=== PATIENT | female | born 1990 | race Hispanic/Latino ===

== ENCOUNTER 2017-07-23 23:40 | Emergency (ER) | payer MEDICAID ==
[2017-07-23 23:54] VITALS: BMI 47.8
[2017-07-23 23:55] VITALS: PULSE 74; RESP 18; TEMP 100.4; O2SAT 99
--- NOTE | 2017-07-23 23:57 | ED PDOC ---
Arrival/HPI - General Historian: Patient <Talib Ramirez - Last Filed: 07/24/17 00:36> <Gurvinder Benitez - Last Filed: 07/24/17 00:52> - General Time Seen by Provider: 07/23/17 23:51 - History of Present Illness Narrative History of Present Illness (Text): 07/23/17 23:52 27 y/o female, no significant pmh, nkda, c/o tongue swelling and pain s/p tongue piercing about 2 days ago. Aching pain, feels the tongue is welling, feels warm and feverish, no night sweat, no difficulty swallowing, no other medical or psychiatric complaints. (Talib Ramirez) Past Medical History - Provider Review Nursing Documentation Reviewed: Yes - Past History Past History: Non-Contributing - Infectious Disease Hx of Infectious Diseases: None - Tetanus Immunization Tetanus Immunization: Unknown - Past Medical History Past Medical History: No Previous - Cardiac Hx Cardiac Arrhythmia: No Hx Congestive Heart Failure: No Hx Hypertension: No Hx Mitral Valve Prolapse: No Hx Pacemaker: No Hx Peripheral Edema: No - Pulmonary Hx Asthma: No Hx Bronchitis: No Hx Chronic Obstructive Pulmonary Disease (COPD): No Hx Emphysema: No Hx Pneumonia: No Hx Sleep Apnea: No - Neurological Hx Alzheimer's Disease: No Hx Dementia: No Hx Migraine: No Hx Parkinson's Disease: No Hx Seizures: No Hx Transient Ischemic Attacks (TIA): No - HEENT Hx HEENT Disorder: No Hx Blind: No Hx Cataracts: No Hx Deafness: No Hx Difficulty Chewing: No Hx Epistaxis: No Hx Glaucoma: No Hx Macular Degeneration: No - Renal Hx Renal Disorder: No Hx Kidney Stones: No - Endocrine/Metabolic Hx Hyperthyroidism: No Hx Hypothyroidism: No - Hematological/Oncological Hx Anemia: No Hx Sickle Cell Disease: No - Integumentary Hx Dermatological Disorder: No Hx Basal Cell Carcinoma: No Hx Eczema: No Hx Melanoma: No Hx Psoriasis: No Hx Squamous Cell Carcinoma: No - Musculoskeletal/Rheumatological Hx Falls: No Other/Comment: NECK PAIN, BACK PAIN - Gastrointestinal Hx Crohn's Disease: No Hx Diverticulitis: No Hx Gall Bladder Disease: No Hx Gastrointestinal Ulcer: Yes Hx Pancreatitis: No - Genitourinary/Gynecological Hx Sexually Transmitted Diseases: No - Psychiatric Hx Psychophysiologic Disorder: No Hx Anxiety: Yes Hx Bipolar Disorder: No Hx Depression: Yes Hx Schizophrenia: No Hx Substance Use: No - Past Surgical History Past Surgical History: No Previous - Surgical History Hx Appendectomy: No Hx Cholecystectomy: No Hx Coronary Stent: No - Anesthesia Hx Anesthesia Reactions: No - Suicidal Assessment Feels Threatened In Home Enviroment: No <Talib Ramirez - Last Filed: 07/24/17 00:36> Family/Social History - Physician Review Nursing Documentation Reviewed: Yes Family/Social History: Unknown Family HX Smoking Status: Never Smoked Hx Alcohol Use: Yes Hx Substance Use: No Hx Substance Use Treatment: No <Talib Ramirez - Last Filed: 07/24/17 00:36> Allergies/Home Meds <Talib Ramirez - Last Filed: 07/24/17 00:36> <Gurvinder Benitez - Last Filed: 07/24/17 00:52> Allergies/Adverse Reactions: Allergies UNKNOWN ANTIDEPRESSANT Allergy (Uncoded 07/23/17 23:51) RASH Home Medications: Home Meds Medication Instructions Recorded Confirmed Alprazolam [Xanax] 0.25 mg PO BID 10/11/15 03/29/16 Cyclobenzaprine [Flexeril] 10 mg PO HS 10/11/15 03/29/16 Ziprasidone [Geodon Cap] 40 mg PO Q12H 10/11/15 03/29/16 traZODone [Desyrel] 50 mg PO HS 10/11/15 03/29/16 Review of Systems - Review of Systems Constitutional: Fevers. absent: Fatigue Eyes: absent: Vision Changes ENT: absent: Hearing Changes Respiratory: absent: SOB, Cough Skin: absent: Rash, Pruritis, Ulcer Psychiatric: absent: Anxiety, Depression <Talib Ramirez - Last Filed: 07/24/17 00:36> Physical Exam - Systems Exam Head: Present: Atraumatic, Normocephalic Pupils: Present: PERRL Extroacular Muscles: Present: EOMI Conjunctiva: Present: Normal Mouth: Present: Moist Mucous Membranes, Normal Lips, Normal Teeth. No: Normal Tounge (visile tongue swelling and tongue piercing noted) Neck: Present: Normal Range of Motion, Trachea Midline. No: MIDLINE TENDERNESS , Paraspinal Tenderness, Lymphadenopathy Respiratory/Chest: Present: Clear to Auscultation, Good Air Exchange. No: Respiratory Distress, Accessory Muscle Use, Wheezes, Decreased Breath Sounds, Rales, Retracting, Rhonchi Cardiovascular: Present: Regular Rate and Rhythm, Normal S1, S2. No: Murmurs Abdomen: Present: Normal Bowel Sounds. No: Tenderness, Distention, Peritoneal Signs Back: Present: Normal Inspection Upper Extremity: Present: Normal Inspection. No: Cyanosis, Edema Lower Extremity: Present: Normal Inspection. No: Edema Neurological: Present: GCS=15, CN II-XII Intact, Speech Normal Skin: Present: Warm, Dry, Normal Color. No: Rashes Psychiatric: Present: Alert, Oriented x 3, Normal Insight, Normal Concentration <Talib Ramirez - Last Filed: 07/24/17 00:36> Medical Decision Making <Talib Ramirez - Last Filed: 07/24/17 00:36> <Gurvinder Benitez - Last Filed: 07/24/17 00:52> ED Course and Treatment: 07/23/17 23:59 -benadryl/solumedrol -unasyn -will remove the source of the problem 07/24/17 00:42 -piercing removed with unscrewing the top of the pin point region and remove it completely, no fluctuant abscess with no oozing/discharge. Piercing part given back to the patient. -Discharge home with clindamycin, motrin, rinse with salt water gargling/ hydrogen peroxide 2 times daily for 7 days, follow up with your own pmd and dentist within 2 days, return to the ER for any new or worsening signs or symptoms. (Talib Ramirez) - Medication Orders Current Medication Orders: Ampicillin Sodium/Sulbactam (Sodium 3 gm/ Sodium Chloride) 100 mls @ 100 mls/ hr IVPB STAT STA PRN Reason: Protocol Stop: 07/24/17 01:40 Discontinued Medications Acetaminophen (Tylenol 325mg Tab) 650 mg PO STAT STA Stop: 07/24/17 00:42 Diphenhydramine HCl (Benadryl) 50 mg IVP STAT STA Stop: 07/24/17 00:03 Last Admin: 07/24/17 00:16 Dose: 50 mg Ketorolac Tromethamine (Toradol) 30 mg IVP STAT STA Stop: 07/24/17 00:42 Methylprednisolone (Solu-Medrol) 125 mg IVP STAT STA Stop: 07/24/17 00:03 Last Admin: 07/24/17 00:16 Dose: 125 mg - PA / COMPRESSOR OPERATOR PORTABLE / Resident Statement ILIR has reviewed & agrees with the documentation as recorded. <Talib Ramirez - Last Filed: 07/24/17 00:36> - PA / COMPRESSOR OPERATOR PORTABLE / Resident Statement ILIR has reviewed & agrees with the documentation as recorded. ILIR has examined the patient and agrees with the treatment plan. <Gurvinder Benitez - Last Filed: 07/24/17 00:52> Disposition/Present on Arrival - Present on Arrival Any Indicators Present on Arrival: No History of DVT/PE: No History of Uncontrolled Diabetes: No Urinary Catheter: No History of Decub. Ulcer: No History Surgical Site Infection Following: None - Disposition Have Diagnosis and Disposition been Completed?: Yes Disposition Time: 00:44 Patient Plan: Discharge <Talib Ramirez - Last Filed: 07/24/17 00:36> <Gurvinder Benitez - Last Filed: 07/24/17 00:52> - Disposition Diagnosis: Tongue swelling, Piercing Disposition: HOME/ ROUTINE Condition: GOOD Additional Instructions: -Discharge home with augmentin, motrin, rinse with salt water gargling/hydrogen peroxide 2 times daily for 7 days, follow up with your own pmd and dentist within 2 days, return to the ER for any new or worsening signs or symptoms. Prescriptions: Amoxicillin/Clavulanate [Augmentin 875 MG-125 MG] 1 tab PO BID #20 tab Chlorhexidine 0.12% [Peridex] 15 ml PO BID #1 bottle Ibuprofen [Motrin Tab] 600 mg PO QID PRN #24 tab PRN Reason: Other Referrals: Farhat Peacock DMD [Non-Staff] - Follow up with primary Forms: WORK NOTE
[2017-07-24] MEDS ORDERED: DiphenhydrAMINE 50 mg/ml Inj IVP STA (00:02)
[2017-07-24 00:09] VITALS: BP 141/85
[2017-07-24] MEDS ORDERED: Ampicillin/Sulbactam 3 GM in Sodium Chloride 0.9% 100 ML IVPB STA (00:41)
== END 2017-07-24 02:10 | disposition home or self-care (01) ==
LOC: ED 23:40
DX: K14.9 Disease of tongue, unspecified (principal)
CPT/HCPCS: 96374; 96375; 99282; J0295; J1200; J1885; J2930

== ENCOUNTER 2017-10-16 08:05 | Emergency (ER) | payer MEDICAID ==
[2017-10-16 08:06] VITALS: BMI 47.8
[2017-10-16 08:18] VITALS: BP 131/81; PULSE 88; RESP 116; TEMP 98.8; O2SAT 97
[2017-10-16] MEDS ORDERED: Sodium Chloride 0.9% 1,000 ML IV STA (08:52)
--- NOTE | 2017-10-16 08:59 | ED PDOC ---
Arrival/HPI - General Historian: Patient - History of Present Illness Time/Duration: 24 hours Symptom Onset: Sudden Symptom Course: Intermittent Quality: Pressure, Cramping Severity Level: 10 Activities at Onset: Rest, Light Context: Home <Cecilio Prado - Last Filed: 10/16/17 11:13> <Nahum Sykes - Last Filed: 10/16/17 16:10> - General Chief Complaint: Abdominal Pain Time Seen by Provider: 10/16/17 08:10 - History of Present Illness Narrative History of Present Illness (Text): 10/16/17 09:03 Ms. Prabhakar is a 27 year old female with a past medical history significant for anxiety and depression who presents to the [facility] ED with a chief complaint of abdominal pain located in her LUQ and left flank since early yesterday morning. She reports that yesterday around 0200, she began to experience pain on her left side that she describes as "someone kicking me on the inside". She reports that she took an ibuprofen a few hours later with moderate relief. She also reports one episode of vomiting but she stated that she kept it in her mouth and swallowed it, as vomiting is "not lady like". She denies any association with PO intake, positioning or bowel movement but does endorse that the pain is worse with urination. She denies headache, dizziness, chest pain, SOB, cough, nausea, diarrhea, constipation, hematuria, urinary frequency, vaginal discharge , history of STI's or any numbness/tingling/weakness of any extremity. (Cecilio Prado) Past Medical History - Provider Review Nursing Documentation Reviewed: Yes - Travel History Have you recently traveled outside [place] w/in the past 3 mons?: No - Past History Past History: Non-Contributing - Infectious Disease Hx of Infectious Diseases: None - Tetanus Immunization Tetanus Immunization: Unknown - Reproductive Menopause: No - Past Medical History Past Medical History: No Previous - Cardiac Hx Cardiac Arrhythmia: No Hx Congestive Heart Failure: No Hx Hypertension: No Hx Mitral Valve Prolapse: No Hx Pacemaker: No Hx Peripheral Edema: No - Pulmonary Hx Asthma: No Hx Bronchitis: No Hx Chronic Obstructive Pulmonary Disease (COPD): No Hx Emphysema: No Hx Pneumonia: No Hx Sleep Apnea: No - Neurological Hx Alzheimer's Disease: No Hx Dementia: No Hx Migraine: No Hx Parkinson's Disease: No Hx Seizures: No Hx Transient Ischemic Attacks (TIA): No - HEENT Hx HEENT Disorder: No Hx Blind: No Hx Cataracts: No Hx Deafness: No Hx Difficulty Chewing: No Hx Epistaxis: No Hx Glaucoma: No Hx Macular Degeneration: No - Renal Hx Renal Disorder: No Hx Kidney Stones: No - Endocrine/Metabolic Hx Hyperthyroidism: No Hx Hypothyroidism: No - Hematological/Oncological Hx Anemia: No Hx Sickle Cell Disease: No - Integumentary Hx Dermatological Disorder: No Hx Basal Cell Carcinoma: No Hx Eczema: No Hx Melanoma: No Hx Psoriasis: No Hx Squamous Cell Carcinoma: No - Musculoskeletal/Rheumatological Hx Falls: No Other/Comment: NECK PAIN, BACK PAIN - Gastrointestinal Hx Crohn's Disease: No Hx Diverticulitis: No Hx Gall Bladder Disease: No Hx Gastrointestinal Ulcer: Yes Hx Pancreatitis: No - Genitourinary/Gynecological Hx Sexually Transmitted Diseases: No - Psychiatric Hx Psychophysiologic Disorder: No Hx Anxiety: Yes Hx Bipolar Disorder: No Hx Depression: Yes Hx Schizophrenia: No Hx Substance Use: No - Past Surgical History Past Surgical History: No Previous - Surgical History Hx Appendectomy: No Hx Cholecystectomy: No Hx Coronary Stent: No - Anesthesia Hx Anesthesia Reactions: No - Suicidal Assessment Feels Threatened In Home Enviroment: No <Cecilio Prado - Last Filed: 10/16/17 11:13> Family/Social History - Physician Review Nursing Documentation Reviewed: Yes Family/Social History: Unknown Family HX Smoking Status: Never Smoked Hx Alcohol Use: Yes Hx Substance Use: No Hx Substance Use Treatment: No <Cecilio Prado - Last Filed: 10/16/17 11:13> Allergies/Home Meds <Cecilio Prado - Last Filed: 10/16/17 11:13> <Nahum Sykes - Last Filed: 10/16/17 16:10> Allergies/Adverse Reactions: Allergies UNKNOWN ANTIDEPRESSANT Allergy (Uncoded 07/24/17 01:18) RASH Home Medications: Home Meds Medication Instructions Recorded Confirmed Alprazolam [Xanax] 0.25 mg PO BID 10/11/15 10/16/17 Ziprasidone [Geodon Cap] 40 mg PO Q12H 10/11/15 10/16/17 traZODone [Desyrel] 50 mg PO HS 10/11/15 10/16/17 Review of Systems - Physician Review All systems were reviewed & negative as marked: Yes - Review of Systems Constitutional: Normal. absent: Fevers, Night Sweats Eyes: Normal. absent: Vision Changes ENT: Normal. absent: Sore Throat Respiratory: Normal. absent: SOB, Cough, Sputum, Wheezing Cardiovascular: Normal. absent: Chest Pain, Edema Gastrointestinal: Abdominal Pain (Left upper quadrant/left flank), Vomiting ( One episode of vomiting ). absent: Normal, Stool Changes, Constipation, Diarrhea, Nausea, Appetite Changes, Hematochezia, Hematemesis Genitourinary Female: Dysuria. absent: Normal, Frequency, Hematuria, Urine Output Changes, Vaginal Bleeding, Vaginal Discharge Musculoskeletal: Normal. absent: Arthralgias, Back Pain, Neck Pain, Joint Swelling, Myalgias Skin: Normal. absent: Rash Neurological: Normal. absent: Headache Endocrine: Normal Hemo/Lymphatic: Normal Psychiatric: Normal <Cecilio Prado - Last Filed: 10/16/17 11:13> Physical Exam Vital Signs Reviewed: Yes Temperature: Afebrile Blood Pressure: Normal Pulse: Regular Respiratory Rate: Normal Appearance: Positive for: Well-Appearing, Non-Toxic, Comfortable Pain Distress: None Mental Status: Positive for: Alert and Oriented X 3 - Systems Exam Head: Present: Atraumatic, Normocephalic Pupils: Present: PERRL Extroacular Muscles: Present: EOMI Conjunctiva: Present: Normal Mouth: Present: Moist Mucous Membranes Neck: Present: Normal Range of Motion, Trachea Midline. No: Meningeal Signs, MIDLINE TENDERNESS, Paraspinal Tenderness, JVD Respiratory/Chest: Present: Clear to Auscultation, Good Air Exchange. No: Respiratory Distress, Accessory Muscle Use, Wheezes, Rales, Rhonchi, Tachypneic Cardiovascular: Present: Regular Rate and Rhythm, Normal S1, S2, Peripheal Pulses Present. No: Murmurs, Irregular Rhythm, Tachycardic, Bradycardic Abdomen: Present: Tenderness (TTP to LUQ and L flank), Normal Bowel Sounds. No : Distention, Peritoneal Signs, Rebound, Guarding, McBurney's Point Tender, Rovsing's Sign Present, Hernias, Feeding Tubes, Ostomy Tubes, Mass/Organomegaly , Scars Back: Present: Normal Inspection. No: CVA Tenderness, Midline Tenderness, Paraspinal Tenderness Upper Extremity: Present: Normal Inspection. No: Cyanosis, Edema Lower Extremity: Present: Normal Inspection. No: Edema Neurological: Present: GCS=15, CN II-XII Intact, Speech Normal Skin: Present: Warm, Dry, Normal Color. No: Rashes Lymphatic: No: Cervical Adenopathy Psychiatric: Present: Alert, Oriented x 3, Normal Insight, Normal Concentration <Cecilio Prado - Last Filed: 10/16/17 11:13> Vital Signs Temp Pulse Resp BP Pulse Ox 10/16/17 08:14 98.8 F 88 116 H 131/81 97 10/16/17 08:06 98.8 F 88 16 131/81 97 Medical Decision Making <Cecilio Prado - Last Filed: 10/16/17 11:13> <Nahum Sykes - Last Filed: 10/16/17 16:10> ED Course and Treatment: 10/16/17 09:11 Impression: 27 year old female with a past medical history significant for anxiety and depression who presents to the [facility] ED with a chief complaint of abdominal pain located in her LUQ and left flank since early yesterday morning Plan: -Toradol, Zofran, and 1L NS bolus -CBC, CMP, UA, Lipase, POC urine test -CT Abdomen/Pelvis w/ IV contrast -Reassess and disposition Prior Visits: 06/2017: Patient was seen and evaluated for tongue swelling 07/2016: Patient was seen and evaluated for sore throat (Cecilio Prado) A 27 year old female with left upper abdominal/left flank pain with dysuria. In agreement with resident note, which includes further HPI details. Patient was seen and evaluated with resident, came up with plan and treatment together. CT shows no stone. UA shows UTI. Discharged on Ciprofloxacin. (Nahum Sykes) - Lab Interpretations Lab Results: 10/16/17 08:56 10/16/17 08:56 Lab Results 10/16/17 09:10: Urine Color Yellow, Urine Appearance Cloudy, Urine pH 6.0, Ur Specific [place] 1.020, Urine Protein 30 H, Urine Glucose (UA) Negative, Urine Ketones Negative, Urine Blood Moderate H, Urine Nitrate Positive H, Urine Bilirubin Negative, Urine Urobilinogen 0.2, Ur Leukocyte Esterase Moderate H, Urine RBC 5 - 10, Urine WBC Tntc, Ur Epithelial Cells 0 - 2, Urine Bacteria Mod , Urine HCG, Qual Negative 10/16/17 08:56: Sodium 139, Potassium 4.0, Chloride 104, Carbon Dioxide 25, Anion Gap 14, BUN 14, Creatinine 0.6 L, Est GFR ( Amer) > 60, Est GFR ( Non-Af Amer) > 60, Random Glucose 174 H, Calcium 9.0, Total Bilirubin 0.6, AST 26, ALT 34, Alkaline Phosphatase 73, Total Protein 7.5, Albumin 4.0, Globulin 3.5, Albumin/Globulin Ratio 1.1, Lipase 98 10/16/17 08:56: WBC 7.4, RBC 3.97, Hgb 10.0 L, Hct 31.5 L, MCV 79.3 L, MCH 25.2 , MCHC 31.7, RDW 13.7, Plt Count 171, MPV 11.4 H, Gran % 62.6, Lymph % (Auto) 30.5, [place] % (Auto) 5.2, Eos % (Auto) 1.4 L, Baso % (Auto) 0.3, Gran # 4.62, Lymph # 2.3, Blount # 0.4, Eos # 0.1, Baso # 0.02 - RAD Interpretation Radiology Orders: 10/16/17 08:52 ABD & PELVIS IV CONTRAST ONLY [CT] Stat - Medication Orders Current Medication Orders: Discontinued Medications Sodium Chloride (Sodium Chloride 0.9%) 1,000 mls @ 999 mls/hr IV .Q1H1M STA Stop: 10/16/17 09:52 Last Admin: 10/16/17 09:00 Dose: 999 mls/hr eMAR Start Stop Document 10/16/17 09:00 [place] (Rec: 10/16/17 09:00 [place] [id number] Intravenous Solution Start Date 10/16/17 Start Time 09:00 Ketorolac Tromethamine (Toradol) 30 mg IVP STAT STA Stop: 10/16/17 08:54 Last Admin: 10/16/17 09:00 Dose: 30 mg MAR Pain Assessment Document 10/16/17 09:00 [place] (Rec: 10/16/17 09:01 [id number] Pain Reassessment Is this a pain reassessment? Yes Sleep Is patient sleeping during reassessment? No Presence of Pain Presence of Pain Yes Pain Scale Used Pain Scale Used Numeric Location Left, Right or Bilateral Left Upper or Lower Lower Pain Location Body Site Abdomen Description Description Intermittent Pain Behavior Guarding IVP Administration Document 10/16/17 09:00 LA (Rec: 10/16/17 09:01 [place] [facility] [id number] Charges for Administration # of IVP Administrations 1 Ondansetron HCl (Zofran Inj) 8 mg IVP STAT STA Stop: 10/16/17 08:53 Last Admin: 10/16/17 08:59 Dose: 8 mg IVP Administration Document 10/16/17 08:59 LA (Rec: 10/16/17 08:59 [place] [facility] [id number] Charges for Administration # of IVP Administrations 1 <Cecilio Prado - Last Filed: 10/16/17 11:13> - PA / MANAGER UNIVERSITY / Resident Statement MD/ has reviewed & agrees with the documentation as recorded. MD/ has examined the patient and agrees with the treatment plan. - Scribe Statement The provider has reviewed the documentation as recorded by the Scribe <Nauhm Sykes - Last Filed: 10/16/17 16:10> - Scribe Statement Miriam Velez Provider Scribe Attestation: All medical record entries made by the Scribe were at my direction and personally dictated by me. I have reviewed the chart and agree that the record accurately reflects my personal performance of the history, physical exam, medical decision making, and the department course for this patient. I have also personally directed, reviewed, and agree with the discharge instructions and disposition. (Nahum Sykes) Disposition/Present on Arrival - Present on Arrival Any Indicators Present on Arrival: No History of DVT/PE: No History of Uncontrolled Diabetes: No Urinary Catheter: No History of Decub. Ulcer: No History Surgical Site Infection Following: None - Disposition Have Diagnosis and Disposition been Completed?: Yes Disposition Time: 11:14 Patient Plan: Discharge <Cecilio Prado - Last Filed: 10/16/17 11:13> <Nahum Sykes - Last Filed: 10/16/17 16:10> - Disposition Diagnosis: Urinary tract infection Disposition: HOME/ ROUTINE Condition: STABLE Discharge Instructions (ExitCare): Urinary Tract Infection in Women (ED), Acute Pyelonephritis (ED) Additional Instructions: Mr. Prabhakar, thank you for letting us take care of you today. Your provider was Dr. Sykes. You were treated for UTI. The emergency medical care you received today was directed at your acute symptoms. If you were prescribed any medication , please fill it and take as directed. It may take several days for your symptoms to resolve. Return to the Emergency Department if your symptoms worsen , do not improve, or if you have any other problems. Please contact your doctor or call one of the physicians/clinics you have been referred to that are listed on the Patient Visit Information form that is included in your discharge packet. Bring any paperwork you were given at discharge with you along with any medications you are taking to your follow up visit. Our treatment cannot replace ongoing medical care by a primary care provider (PCP) outside of the emergency department. PLEASE FOLLOW UP WITH YOUR PMD WITHIN ONE WEEK TO DISCUSS THE CONDITIONS YOU WERE TREATED FOR IN THE ED Thank you for allowing the [facility] team to be part of your care today. If you had an X-Ray or CT scan: A Radiologist will review the ED reading if any change in treatment is needed we will contact you. Prescriptions: Ciprofloxacin [Cipro] 500 mg PO BID 7 Days #14 tab Forms: Online-OR (Swedish)
[2017-10-16 09:14] LABS: URINE BILIRUBIN NEGATIVE (NEGATIVE); URINE BLOOD MODERATE (NEGATIVE); URINE GLUCOSE (UA) NEGATIVE (NEGATIVE); URINE KETONE NEGATIVE (NEGATIVE); URINE LEUKOCYTE ESTERASE MODERATE Leu/uL (NEGATIVE); URINE PROTEIN 30 mg/dL (<30 mg/dL); URINE UROBILINOGEN 0.2 E.U./dL (<1 E.U./dL)
[2017-10-16 09:16] LABS: URINE APPEARANCE CLOUDY (CLEAR); URINE COLOR YELLOW (YELLOW)
[2017-10-16 09:19] LABS: URINE BACTERIA MOD (NEG); URINE EPITHELIAL CELLS 0 - 2 /hpf (0-5); URINE WBC TNTC /hpf (0-6)
[2017-10-16 09:27] LABS: BASO # 0.02 K/mm3 (0.0-2.0); BASO % 0.3 % (0.0-3.0); EOS # 0.1 (0.0-0.7); EOS % 1.4 % (1.5-5.0); GRAN # 4.62 (1.4-6.5); GRAN % 62.6 % (50.0-68.0); HEMATOCRIT 31.5 % (36.0-48.0); LYMPH # 2.3 (1.2-3.4); LYMPH % 30.5 % (22.0-35.0); MEAN CELL VOLUME 79.3 fl (80.0-105.0); MEAN CORPUSCULAR HEMOGLOBIN 25.2 pg (25.0-35.0); MEAN CORPUSCULAR HGB CONC 31.7 g/dl (31.0-37.0); MEAN PLATELET VOLUME 11.4 fl (7.0-11.0); MONO # 0.4 (0.1-0.6); MONO % 5.2 % (1.0-6.0); RED CELL DISTRIBUTION WIDTH 13.7 % (11.5-14.5); WHITE BLOOD COUNT 7.4 10^3/ul (4.5-11.0)
[2017-10-16 09:35] LABS: ALB/GLOB RATIO 1.1 (1.1-1.8); ALKALINE PHOSPHATASE 73 U/L (38-126); ALT/SGPT 34 U/L (7-56); AST/SGOT 26 U/L (14-36); BILIRUBIN,TOTAL 0.6 mg/dL (0.2-1.3); BLOOD UREA NITROGEN 14 mg/dL (7-21); CARBON DIOXIDE 25 mmol/L (21-33); CHLORIDE 104 mmol/L (98-107); GFR AFRICAN-AMERICAN > 60; GLUCOSE,RANDOM 174 mg/dL (70-110); LIPASE 98 U/L (23-300); SODIUM 139 mmol/L (132-148); TOTAL PROTEIN 7.5 g/dL (5.8-8.3)
--- NOTE | 2017-10-16 10:42 | CT ---
PROCEDURE: CT Abdomen and Pelvis with contrast HISTORY: abd pain, vomiting COMPARISON: Transvaginal pelvic ultrasound 10/27/2014, abdomen size 05/18/[address] with contrast 07/25/2013. TECHNIQUE: Contrast dose: Omnipaque 350, 150 cc. Radiation dose: Total exam DLP = 1421.43 mGy-cm. This CT exam was performed using one or more of the following dose reduction techniques: Automated exposure control, adjustment of the mA and/or kV according to patient size, and/or use of iterative reconstruction technique. FINDINGS: LOWER THORAX: Prominent cardiac silhouette is again appreciated. No pleural or pericardial effusion. A small hiatal hernia is identified. LIVER: Prominent diffuse fatty infiltration liver appreciate without focal hepatic mass evident. Liver appears upper limits normal size overall. GALLBLADDER AND BILE DUCTS: Unremarkable. PANCREAS: Unremarkable. No gross lesion or ductal dilatation. SPLEEN: Spleen remains enlarged without focal mass, measuring 17.5 cm. ADRENALS: Unremarkable. No mass. KIDNEYS AND URETERS: Unremarkable. No hydronephrosis. No solid mass. VASCULATURE: Unremarkable. No aortic aneurysm. BOWEL: There is no significant volume overall contrast administered to this patient. The stomach is collapsed. A [id number] amount of retained fecal material scattered throughout the large bowel with the small bowel unremarkable appearing grossly. No colonic diverticulosis. APPENDIX: Normal appendix. PERITONEUM: Unremarkable. No free fluid. No free air. LYMPH NODES: Unremarkable. No enlarged lymph nodes. BLADDER: Unremarkable. REPRODUCTIVE: Unremarkable. BONES: No acute fracture. OTHER FINDINGS: None. IMPRESSION: 1. Marked diffuse fatty infiltration of the liver is appreciate without focal mass identified. Liver appears upper limits normal size. 2. Persistent or recurrent splenomegaly now measuring 17.5 cm. No focal mass identified within the spleen. 3. No bowel, urinary tract obstruction. No perinephric reaction. No mesenteric edema, ascites or free intraperitoneal gas.
== END 2017-10-16 11:45 | disposition home or self-care (01) ==
LOC: ED 08:05
DX: N39.0 Urinary tract infection, site not specified (principal)
CPT/HCPCS: 74177; 80053; 81001; 83690; 84703; 85025; 87086; 87181; 96374; 96375; 99283; J1885; J2405; J7040; Q9967

== ENCOUNTER 2017-10-22 15:16 | Emergency (ER) | payer MEDICAID ==
[2017-10-22 15:17] VITALS: BMI 47.8
[2017-10-22 15:54] VITALS: BP 111/77; PULSE 99; RESP 18; TEMP 98.7; O2SAT 97
[2017-10-22] MEDS ORDERED: Sodium Chloride 0.9% 1,000 ML IV STA (17:06)
--- NOTE | 2017-10-22 17:28 | ED PDOC ---
Arrival/HPI - General Chief Complaint: GI Problem Time Seen by Provider: 10/22/17 15:20 Historian: Patient - History of Present Illness Narrative History of Present Illness (Text): 10/22/17 17:01 A 27 year old female, whose past medical history includes anxiety and depression , presents to the emergency department complaining of LUQ and episgastric pain for 1 week. Patient reports pain is "on and off" and describes it as aching. Also, patient mentions experiencing burning sensation of upper chest region associated with eating food. Patient notes experiencing 3 episodes of vomiting today, diarrhea last night, productive cough, and right back lumbar pain (worse with movement). Patient denies of any fever, chills, urinary symptoms, chest pain, shortness of breath, or any other complaints at this time. Patient visited the ER on 10/16 diagnose with UTI, and has 3 days left to complete Cipro prescription. However, patient has been unable to take GI medication because it has run out. PMD: Dr. Proctor Time/Duration: 1 week Past Medical History - Provider Review Nursing Documentation Reviewed: Yes - Past History Past History: Non-Contributing - Infectious Disease Hx of Infectious Diseases: None - Tetanus Immunization Tetanus Immunization: Unknown - Past Medical History Past Medical History: No Previous - Cardiac Hx Cardiac Disorders: No - Pulmonary Hx Respiratory Disorders: No - Neurological Hx Neurological Disorder: No - HEENT Hx HEENT Disorder: No - Renal Hx Renal Disorder: No - Endocrine/Metabolic Hx Endocrine Disorders: No - Hematological/Oncological Hx Blood Disorders: No - Integumentary Hx Dermatological Disorder: No - Musculoskeletal/Rheumatological Hx Musculoskeletal Disorders: Yes Hx Back Pain: Yes Other/Comment: NECK PAIN, BACK PAIN - Gastrointestinal Hx Gastrointestinal Ulcer: Yes - Genitourinary/Gynecological Hx Genitourinary Disorders: No - Psychiatric Hx Anxiety: Yes Hx Depression: Yes Hx Substance Use: No - Past Surgical History Past Surgical History: No Previous - Surgical History Hx Appendectomy: No Hx Cholecystectomy: No Hx Coronary Stent: No - Anesthesia Hx Anesthesia Reactions: No - Suicidal Assessment Feels Threatened In Home Enviroment: No Family/Social History - Physician Review Nursing Documentation Reviewed: Yes Family/Social History: No Known Family HX Smoking Status: Never Smoked Hx Alcohol Use: Yes Hx Substance Use: No Hx Substance Use Treatment: No Allergies/Home Meds Allergies/Adverse Reactions: Allergies UNKNOWN ANTIDEPRESSANT Allergy (Uncoded 10/22/17 15:49) RASH Home Medications: Home Meds Medication Instructions Recorded Confirmed Alprazolam [Xanax] 0.25 mg PO BID 10/11/15 10/22/17 Ziprasidone [Geodon Cap] 40 mg PO Q12H 10/11/15 10/22/17 traZODone [Desyrel] 50 mg PO HS 10/11/15 10/22/17 Review of Systems - Physician Review All systems were reviewed & negative as marked: Yes - Review of Systems Constitutional: absent: Fevers, Night Sweats Respiratory: Cough (productive). absent: SOB Cardiovascular: Chest Pain (burning sensation to upper chest region associated with eating food) Gastrointestinal: Abdominal Pain (aching pain in LUQ and epigastric region), Diarrhea (last night), Vomiting (3 episodes of vomiting today) Physical Exam Vital Signs Reviewed: Yes Vital Signs Temp Pulse Resp BP Pulse Ox 10/22/17 15:43 98.7 F 99 H 18 111/77 97 Temperature: Afebrile Blood Pressure: Normal Pulse: Regular Respiratory Rate: Normal Appearance: Positive for: Well-Appearing Pain Distress: None Mental Status: Positive for: Alert and Oriented X 3 - Systems Exam Head: Present: Atraumatic, Normocephalic Pupils: Present: PERRL Extroacular Muscles: Present: EOMI Conjunctiva: Present: Normal Mouth: Present: Moist Mucous Membranes Nose (Internal): Present: Normal Inspection Neck: Present: Normal Range of Motion. No: Meningeal Signs, MIDLINE TENDERNESS Respiratory/Chest: Present: Clear to Auscultation, Good Air Exchange. No: Respiratory Distress, Accessory Muscle Use Cardiovascular: Present: Regular Rate and Rhythm Abdomen: Present: Tenderness (epigastric), Normal Bowel Sounds, Guarding. No: Distention, Rebound Back: Present: Normal Inspection, Paraspinal Tenderness (right lower back tenderness). No: CVA Tenderness Upper Extremity: Present: Normal Inspection Lower Extremity: Present: Normal Inspection Neurological: Present: GCS=15, CN II-XII Intact, Speech Normal, Motor Func Grossly Intact, Normal Sensory Function Skin: Present: Warm Psychiatric: Present: Alert, Oriented x 3, Normal Insight, Normal Concentration Medical Decision Making ED Course and Treatment: 10/22/17 17:06 Impression: 27 year old female with epigastric and LUQ pain. Physical exam shows epigastric tenderness; and lower right back tenderness. Differential Diagnosis included but are not limited to: Gastritis vs. Pancreatitis vs. Viral Syndrome vs. Pneumonia Plan: -- Chest X-ray -- Labs -- Urinalysis -- Pepcid -- Zofran -- IV Fluids -- Reassess and disposition Prior Visits: Notes and results from previous visits were reviewed. Patient was last seen in the emergency department on 10/16/2017 for LUQ pain and left flank pain. Patient was discharged home. Progress Notes: 10/22/17 19:40 UA negative. Labs reviewed. CXR normal. Patient is feeling much better after IVF adn medications. She is tolerating PO fluids. She will follow up with her PMD in 1-2days. and advised to return to the ED if symptoms worsen or any other concern. - Lab Interpretations Lab Results: 10/22/17 17:13 10/22/17 17:13 Lab Results 10/22/17 17:17: Urine Color Yellow, Urine Appearance Clear, Urine pH 6.0, Ur Specific [place] >= 1.030, Urine Protein 30 H, Urine Glucose (UA) Negative, Urine Ketones Trace H, Urine Blood Small H, Urine Nitrate Negative, Urine Bilirubin Negative, Urine Urobilinogen 0.2, Ur Leukocyte Esterase Negative, Urine RBC 5 - 10, Urine WBC 0 - 2, Ur Epithelial Cells 10 - 12, Urine Bacteria Small 10/22/17 17:13: Sodium 140, Potassium 4.0, Chloride 101, Carbon Dioxide 26, Anion Gap 16, BUN 13, Creatinine 0.6 L, Est GFR ( Amer) > 60, Est GFR ( Non-Af Amer) > 60, Random Glucose 196 H, Calcium 9.8, Total Bilirubin 0.5, AST 34, ALT 21, Alkaline Phosphatase 81, Total Protein 8.4 H, Albumin 4.4, Globulin 4.0, Albumin/Globulin Ratio 1.1, Lipase 153 10/22/17 17:13: WBC 9.3 D, RBC 4.52, Hgb 11.4 L, Hct 35.2 L, MCV 77.9 L, MCH 25.2, MCHC 32.4, RDW 13.8, Plt Count 202, MPV 11.2 H, Gran % 63.4, Lymph % (Auto ) 28.7, Gem % (Auto) 6.0, Eos % (Auto) 1.8, Baso % (Auto) 0.1, Gran # 5.91, Lymph # 2.7, Gem # 0.6, Eos # 0.2, Baso # 0.01 I have reviewed the lab results: Yes - RAD Interpretation Radiology Orders: 10/22/17 17:06 CXR [CHEST PORTABLE] [RAD] Stat - Medication Orders Current Medication Orders: Discontinued Medications Famotidine (Pepcid) 20 mg IVP STAT STA Stop: 10/22/17 17:07 Last Admin: 10/22/17 17:24 Dose: 20 mg IVP Administration Document 10/22/17 17:24 SE (Rec: 10/22/17 17:24 [id number]) Charges for Administration # of IVP Administrations 1 Sodium Chloride (Sodium Chloride 0.9%) 1,000 mls @ 1,000 mls/hr IV .Q1H STA Stop: 10/22/17 18:05 Last Admin: 10/22/17 17:24 Dose: 1,000 mls/hr eMAR Start Stop Document 10/22/17 17:24 SE (Rec: 10/22/17 17:24 [id number]) Intravenous Solution Start Date 10/22/17 Start Time 17:24 Ondansetron HCl (Zofran Inj) 4 mg IVP STAT STA Stop: 10/22/17 17:07 Last Admin: 10/22/17 17:24 Dose: 4 mg IVP Administration Document 10/22/17 17:24 SE (Rec: 10/22/17 17:24 [id number]) Charges for Administration # of IVP Administrations 1 - Scribe Statement The provider has reviewed the documentation as recorded by the Gaby Prabhakar Provider Scribe Attestation: All medical record entries made by the Scribbessie were at my direction and personally dictated by me. I have reviewed the chart and agree that the record accurately reflects my personal performance of the history, physical exam, medical decision making, and the department course for this patient. I have also personally directed, reviewed, and agree with the discharge instructions and disposition. Disposition/Present on Arrival - Present on Arrival Any Indicators Present on Arrival: No History of DVT/PE: No History of Uncontrolled Diabetes: No Urinary Catheter: No History of Decub. Ulcer: No History Surgical Site Infection Following: None - Disposition Have Diagnosis and Disposition been Completed?: Yes Diagnosis: Abdominal pain, Viral syndrome Disposition: HOME/ ROUTINE Disposition Time: 19:40 Patient Plan: Discharge Condition: IMPROVED Discharge Instructions (ExitCare): Acute Abdominal Pain (ED), Viral Syndrome ( ED) Additional Instructions: Ms Prabhakar thank you for letting us take care of you today. Your provider was Dr Harris. You were treated for Abdominal Pain, Viral Syndrome. The emergency medical care you received today was directed at your acute symptoms. If you were prescribed any medication, please fill it and take as directed. It may take several days for your symptoms to resolve. Return to the Emergency Department if your symptoms worsen, do not improve, or if you have any other problems. Please contact your doctor or call one of the physicians/clinics you have been referred to that are listed on the Patient Visit Information form that is included in your discharge packet. Bring any paperwork you were given at discharge with you along with any medications you are taking to your follow up visit. Our treatment cannot replace ongoing medical care by a primary care provider (PCP) outside of the emergency department. Thank you for allowing the [email or web address] team to be part of your care today. If you had an X-Ray or CT scan: A Radiologist will review the ED reading if any change in treatment is needed we will contact you. If you had a blood, urine, or wound culture: It will take several days for the results, if any change in treatment is needed we will contact you. If you had an STI test: It will take 48 hours for the results. Please call after 1 week if you have not heard back. Prescriptions: guaiFENesin/Dextromethorphan [guaiFENesin-DM] 10 ml PO Q6 PRN #1 bottle PRN Reason: Cough Ondansetron ODT [Zofran ODT] 4 mg PO Q6 #14 odt Pantoprazole Sodium [Protonix] 20 mg PO DAILY #20 ect Ranitidine HCl [Zantac] 150 mg PO BID PRN #30 tablet PRN Reason: Pain, Mild (1-3) Referrals: Bernard Proctor DO [Primary Care Provider] - Follow up with primary Forms: [employer] (Korean), WORK NOTE
[2017-10-22 17:34] LABS: BASO # 0.01 K/mm3 (0.0-2.0); BASO % 0.1 % (0.0-3.0); EOS # 0.2 (0.0-0.7); EOS % 1.8 % (1.5-5.0); GRAN # 5.91 (1.4-6.5); GRAN % 63.4 % (50.0-68.0); HEMATOCRIT 35.2 % (36.0-48.0); LYMPH # 2.7 (1.2-3.4); LYMPH % 28.7 % (22.0-35.0); MEAN CELL VOLUME 77.9 fl (80.0-105.0); MEAN CORPUSCULAR HEMOGLOBIN 25.2 pg (25.0-35.0); MEAN CORPUSCULAR HGB CONC 32.4 g/dl (31.0-37.0); MEAN PLATELET VOLUME 11.2 fl (7.0-11.0); MONO # 0.6 (0.1-0.6); RED CELL DISTRIBUTION WIDTH 13.8 % (11.5-14.5); WHITE BLOOD COUNT 9.3 10^3/ul (4.5-11.0)
[2017-10-22 17:50] LABS: URINE BILIRUBIN NEGATIVE (NEGATIVE); URINE BLOOD SMALL (NEGATIVE); URINE GLUCOSE (UA) NEGATIVE (NEGATIVE); URINE KETONE TRACE mg/dL (NEGATIVE); URINE LEUKOCYTE ESTERASE NEGATIVE Leu/uL (NEGATIVE); URINE PROTEIN 30 mg/dL (<30 mg/dL); URINE UROBILINOGEN 0.2 E.U./dL (<1 E.U./dL)
[2017-10-22 18:02] LABS: URINE APPEARANCE CLEAR (CLEAR); URINE COLOR YELLOW (YELLOW)
[2017-10-22 18:10] LABS: URINE BACTERIA SMALL (NEG); URINE WBC 0 - 2 /hpf (0-6)
[2017-10-22 19:17] LABS: ALB/GLOB RATIO 1.1 (1.1-1.8); ALKALINE PHOSPHATASE 81 U/L (38-126); ALT/SGPT 21 U/L (7-56); AST/SGOT 34 U/L (14-36); BILIRUBIN,TOTAL 0.5 mg/dL (0.2-1.3); BLOOD UREA NITROGEN 13 mg/dL (7-21); CALCIUM 9.8 mg/dL (8.4-10.5); CARBON DIOXIDE 26 mmol/L (21-33); CHLORIDE 101 mmol/L (98-107); GFR AFRICAN-AMERICAN > 60; GLUCOSE,RANDOM 196 mg/dL (70-110); LIPASE 153 U/L (23-300); SODIUM 140 mmol/L (132-148); TOTAL PROTEIN 8.4 g/dL (5.8-8.3)
--- NOTE | 2017-10-23 08:57 | RAD ---
HISTORY: cough r/o pna COMPARISON: 01/07/2015 FINDINGS: LUNGS: No active pulmonary disease. PLEURA: No significant pleural effusion identified, no pneumothorax apparent. CARDIOVASCULAR: Normal. OSSEOUS STRUCTURES: No significant abnormalities. VISUALIZED UPPER ABDOMEN: Normal. OTHER FINDINGS: None. IMPRESSION: No active disease.
== END 2017-10-22 19:40 | disposition home or self-care (01) ==
LOC: ED 15:16
DX: B34.9 Viral infection, unspecified (principal); R10.12 Left upper quadrant pain; R10.13 Epigastric pain
CPT/HCPCS: 71010; 80053; 81001; 83690; 85025; 96374; 96375; 99284; J2405; J7040

== ENCOUNTER 2018-03-12 13:09 | Emergency (ER) | payer MEDICAID ==
[2018-03-12 13:09] VITALS: BMI 47.8
--- NOTE | 2018-03-12 13:33 | ED PDOC ---
Arrival/HPI - General Chief Complaint: Psychiatric Evaluation Time Seen by Provider: 03/12/18 13:19 Historian: Patient - History of Present Illness Narrative History of Present Illness (Text): 03/12/18 1330 pt p/w + worsening depression, + worsening suicidal thoughts (she may overdose on her medications), prompting patient to come to ED (pt is also incarcerated, accompanied by wood heel flap inserter while the patient is being evaluated in the ED); pt states + louder auditory hallucinations (hearing 3 men's voice telling her to end her life), ? visual/tactile hallucinations; pt denied homicidal ideations; pt states no fever/chills/sweats, no cp/sob/palpitations, pt with chronic abd pain , no n/v, no numbness/tingling, no urinary/bowel changes, no fall/trauma/sick contact, no traveler changer is here for further eval pt's without other complaints. pt ran out of her psych meds a few days ago PCP: Dr Ramirez? (JANY) Time/Duration: Prior to Arrival Symptom Onset: Gradual Symptom Course: Unchanged Context: Home Past Medical History - Provider Review Nursing Documentation Reviewed: Yes - Travel History Have you recently traveled outside [place] w/in the past 3 mons?: No - Past History Past History: Non-Contributing - Infectious Disease Hx of Infectious Diseases: None - Tetanus Immunization Tetanus Immunization: Unknown - Reproductive Menopause: No Currently : Unknown - Past Medical History Past Medical History: No Previous - Cardiac Hx Cardiac Disorders: No - Pulmonary Hx Respiratory Disorders: No - Neurological Hx Neurological Disorder: No - HEENT Hx HEENT Disorder: No - Renal Hx Renal Disorder: No - Endocrine/Metabolic Hx Endocrine Disorders: No - Hematological/Oncological Hx Blood Disorders: No - Integumentary Hx Dermatological Disorder: No - Musculoskeletal/Rheumatological Hx Musculoskeletal Disorders: No Hx Back Pain: No - Gastrointestinal Hx Gastrointestinal Ulcer: Yes - Genitourinary/Gynecological Hx Genitourinary Disorders: No - Psychiatric Hx Anxiety: Yes Hx Depression: Yes Hx Substance Use: No - Past Surgical History Past Surgical History: No Previous - Surgical History Hx Appendectomy: No Hx Cholecystectomy: No Hx Coronary Stent: No - Anesthesia Hx Anesthesia Reactions: No - Suicidal Assessment Feels Threatened In Home Enviroment: No Family/Social History - Physician Review Nursing Documentation Reviewed: Yes Family/Social History: No Known Family HX Smoking Status: Never Smoked Hx Alcohol Use: Yes Hx Substance Use: No Hx Substance Use Treatment: No Allergies/Home Meds Allergies/Adverse Reactions: Allergies UNKNOWN ANTIDEPRESSANT Allergy (Uncoded 10/22/17 15:49) RASH Home Medications: Home Meds Medication Instructions Recorded Confirmed Alprazolam [Xanax] 0.25 mg PO BID 10/11/15 10/22/17 Ziprasidone [Geodon Cap] 40 mg PO Q12H 10/11/15 10/22/17 traZODone [Desyrel] 50 mg PO HS 10/11/15 10/22/17 Review of Systems - Review of Systems Constitutional: Normal Eyes: Normal ENT: Normal Respiratory: Normal Cardiovascular: Normal Gastrointestinal: Abdominal Pain Genitourinary Female: Normal Musculoskeletal: Normal Skin: Normal Neurological: Normal Endocrine: Normal Hemo/Lymphatic: Normal Psychiatric: Depression, Suicidal Ideation Physical Exam Vital Signs Reviewed: Yes Vital Signs Temp Pulse Resp BP Pulse Ox 03/12/18 17:50 98.3 F 83 18 153/84 H 96 03/12/18 15:22 82 18 144/81 97 03/12/18 13:09 99.2 F 86 18 206/89 H 95 Temperature: Afebrile Blood Pressure: Hypertensive Pulse: Regular Respiratory Rate: Normal Appearance: Positive for: Well-Appearing, Non-Toxic, Uncomfortable Pain Distress: None Mental Status: Positive for: Alert and Oriented X 3 - Systems Exam Head: Present: Atraumatic, Normocephalic Pupils: Present: PERRL Extroacular Muscles: Present: EOMI Conjunctiva: Present: Normal Ears: Present: Normal Mouth: Present: Moist Mucous Membranes, Normal Teeth Pharnyx: Present: Normal Nose (External): Present: Atraumatic Nose (Internal): Present: Normal Inspection Neck: Present: Normal Range of Motion, Trachea Midline. No: Meningeal Signs, MIDLINE TENDERNESS Respiratory/Chest: Present: Clear to Auscultation, Good Air Exchange, Accessory Muscle Use. No: Respiratory Distress Cardiovascular: Present: Regular Rate and Rhythm, Normal S1, S2. No: Murmurs Abdomen: Present: Normal Bowel Sounds, Other (well nourished/obese female, no focal tenderness, no masses/rebound/guarding/rigidity, no walker's sign, no mcburney's point tenderness). No: Rebound, Guarding, McBurney's Point Tender Upper Extremity: Present: Normal Inspection, Normal ROM, NORMAL PULSES, Neurovascularly Intact, Capillary Refill < 2s Lower Extremity: Present: Normal Inspection, NORMAL PULSES, Normal ROM, Neurovascularly Intact, Capillary Refill < 2 s. No: Madeleine's Sign, Swelling Neurological: Present: GCS=15, CN II-XII Intact, Speech Normal, Other (no slurr speech, no facial asymmetries, NIH stroke scale ~ 0) Skin: Present: Warm, Normal Color, Other (cap refill < 1sec, no ulcerations, no petechiae) Psychiatric: Present: Alert, Oriented x 3, Normal Insight, Normal Concentration , Other (Flat affect) Medical Decision Making ED Course and Treatment: 03/12/18 1330 Impression: SI/depression, hallucination i have consider all the differential diagnosis regarding pt's chief medical complaints/clinical findings, including but are not limited to: SI/depression, hallucination A/P: SI/depression, hallucination - crisis eval - medical clearance - ua, xray, ekg, labs - supportive care - observe/reevaluation 03/12/18 15:34 pt remained comfortable, pt is not in any distress PT IS MEDICALLY CLEARED FOR PSYCH EVAL/stabilization 03/12/18 17:26 pt is cleared by PES/crisis counsleor, pt with major depressive disorder; pt will f/u with outpt clinic, pt will be discharged home pt is made aware of her medical results pt is encouraged outpt f/u pt will be discharged home pt will be discharged home Re-evaluation Time: 15:37 Reassessment Condition: Improving,but remains with symptoms - Lab Interpretations Lab Results: 03/12/18 13:55 03/12/18 13:55 Lab Results 03/12/18 15:37: Urine HCG, Qual Negative 03/12/18 14:17: Urine Opiates Screen Negative, Urine Methadone Screen Negative, Ur Barbiturates Screen Negative, Ur Phencyclidine Scrn Negative, Ur Amphetamines Screen Negative, U Benzodiazepines Scrn Negative, U Oth Cocaine Metabols Negative, U Cannabinoids Screen Negative 03/12/18 14:17: Urine Color Yellow, Urine Appearance Clear, Urine pH 6.0, Ur Specific [place] 1.025, Urine Protein Trace H, Urine Glucose (UA) Negative, Urine Ketones 15 H, Urine Blood Negative, Urine Nitrate Negative, Urine Bilirubin Negative, Urine Urobilinogen 0.2, Ur Leukocyte Esterase Negative, Urine RBC Negative, Urine WBC 0 - 2, Ur Epithelial Cells 4 - 5, Urine Bacteria Few 03/12/18 13:55: Alcohol, Quantitative < 10 03/12/18 13:55: Salicylates < 1 L, Acetaminophen < 10.0 L 03/12/18 13:55: Sodium 139, Potassium 4.0, Chloride 100, Carbon Dioxide 26, Anion Gap 16, BUN 10, Creatinine 0.6 L, Est GFR ( Amer) > 60, Est GFR ( Non-Af Amer) > 60, Random Glucose 231 H, Calcium 9.4, Total Bilirubin 0.2, AST 24, ALT 34, Alkaline Phosphatase 74, Total Protein 7.6, Albumin 4.3, Globulin 3.3, Albumin/Globulin Ratio 1.3 03/12/18 13:55: WBC 7.3 D, RBC 4.27, Hgb 9.3 L D, Hct 30.1 L, MCV 70.5 L D, MCH 21.8 L, MCHC 30.9 L, RDW 15.6 H, Plt Count 178, MPV 11.2 H, Gran % 67.7, Lymph % (Auto) 26.7, [place] % (Auto) 4.8, Eos % (Auto) 0.8 L, Baso % (Auto) 0.0, Gran # 4.94, Lymph # (Auto) 2.0, [place] # (Auto) 0.4, Eos # (Auto) 0.1, Baso # ( Auto) 0.00 I have reviewed the lab results: Yes Interpretation: Abnormal lab values (chronic hx of anemia (decr H/H); +elevated GLUC) - RAD Interpretation Narrative RAD Interpretations (Text): Report Date : 03/12/2018 16:31:54 Procedure: Chest xray Dictator : DR. Johansen, Shakila AVILA IMPRESSION: No active pulmonary disease. Radiology Orders: 03/12/18 13:30 CHEST PORTABLE [RAD] Stat Logistics Tech: Radiologist - EKG Interpretation EKG Interpretation (Text): 03/12/18 15:36 NSR at 90 bpm, LAD, no ectopy, inverted T In leads III, poor R-wave progression , non-specific st-t changes, ABNL EKG; unchanged compare with old ekg 12/2014 Interpreted by ED Physician: Yes Type: 12 lead EKG Comparison: Similar to previous EKG Disposition/Present on Arrival - Present on Arrival Any Indicators Present on Arrival: No History of DVT/PE: No History of Uncontrolled Diabetes: No Urinary Catheter: No History of Decub. Ulcer: No History Surgical Site Infection Following: None - Disposition Have Diagnosis and Disposition been Completed?: Yes Diagnosis: Major depression, General medical examination, Elevated blood pressure reading Disposition: HOME/ ROUTINE Disposition Time: 17:25 Patient Plan: Discharge Condition: STABLE Discharge Instructions (ExitCare): Depression, High Blood Pressure in Adults, Suicide Prevention, Hypertension (ED) Print Language: EAST TIMOR[place] Additional Instructions: PT IS MEDICALLY CLEARED TO BE EVALUTED AT OUTPATIENT PSYCH/therapy as well as under incarceration Make sure to see your doctor in 1-2 days DRINK PLENTY OF FLUIDS take your medications as prescribed DONT SMOKE/DRINK if you smoke or drink RETURN TO ED IF worse pain, cant breath, persistent vomiting, high fever >101- 102 for hours, altered behavior, severe depression, suicidal/homicidal thoughts , slurr speech, facial changes, focal weakness (arm/leg or both), unable to urinate, heavy/persistent bleeding, passing out, chest pain, or other medical emergencies Referrals: Mely Cassidy MD [Primary Care Provider] - Follow up with primary Forms: [employer] (Af[place])
[2018-03-12 13:41] VITALS: RESP 18
[2018-03-12 14:07] LABS: EOS # 0.1 (0.0-0.7); EOS % 0.8 % (1.5-5.0); GRAN # 4.94 (1.4-6.5); GRAN % 67.7 % (50.0-68.0); HEMOGLOBIN 9.3 g/dL (12.0-16.0); LYMPH % 26.7 % (22.0-35.0); MEAN CELL VOLUME 70.5 fl (80.0-105.0); MEAN CORPUSCULAR HEMOGLOBIN 21.8 pg (25.0-35.0); MEAN CORPUSCULAR HGB CONC 30.9 g/dl (31.0-37.0); MEAN PLATELET VOLUME 11.2 fl (7.0-11.0); MONO # 0.4 (0.1-0.6); MONO % 4.8 % (1.0-6.0); RBC 4.27 10^6/uL (3.5-6.1); RED CELL DISTRIBUTION WIDTH 15.6 % (11.5-14.5); WHITE BLOOD COUNT 7.3 10^3/ul (4.5-11.0)
[2018-03-12 14:19] LABS: ACETAMINOPHEN < 10.0 ug/ml (10.0-20.0); ALB/GLOB RATIO 1.3 (1.1-1.8); ALBUMIN 4.3 g/dL (3.0-4.8); ALT/SGPT 34 U/L (7-56); AST/SGOT 24 U/L (14-36); BLOOD UREA NITROGEN 10 mg/dL (7-21); CALCIUM 9.4 mg/dL (8.4-10.5); GFR AFRICAN-AMERICAN > 60; GFR NON-AFRICAN AMERICAN > 60; SALICYLATE < 1 mg/dL (2.0-20.0)
[2018-03-12 14:30] LABS: URINE BILIRUBIN NEGATIVE (NEGATIVE); URINE BLOOD NEGATIVE (NEGATIVE); URINE GLUCOSE (UA) NEGATIVE (NEGATIVE); URINE LEUKOCYTE ESTERASE NEGATIVE Leu/uL (NEGATIVE); URINE PROTEIN TRACE mg/dL (<30 mg/dL); URINE UROBILINOGEN 0.2 E.U./dL (<1 E.U./dL)
[2018-03-12 14:32] LABS: URINE APPEARANCE CLEAR (CLEAR); URINE COLOR YELLOW (YELLOW)
[2018-03-12 14:34] LABS: URINE BACTERIA FEW (NEG); URINE RBC NEGATIVE /hpf (0-2); URINE WBC 0 - 2 /hpf (0-6)
[2018-03-12 14:44] LABS: BARBITURATES, UR NEGATIVE (NEGATIVE); BENZODIAZEPINES, UR NEGATIVE (NEGATIVE); OPIATES, UR NEGATIVE (NEGATIVE); PHENCYCLIDINE, UR NEGATIVE (NEGATIVE)
--- NOTE | 2018-03-12 16:33 | RAD ---
HISTORY: medical screening COMPARISON: 10/22/2017. FINDINGS: LUNGS: The lungs are clear. PLEURA: No significant pleural effusion identified, no pneumothorax apparent. CARDIOVASCULAR: Normal. OSSEOUS STRUCTURES: No significant abnormalities. VISUALIZED UPPER ABDOMEN: Normal. OTHER FINDINGS: None. IMPRESSION: No active pulmonary disease.
[2018-03-12 17:51] VITALS: BP 153/84; PULSE 83; TEMP 98.3; O2SAT 96
--- NOTE | 2018-03-12 21:22 | CARD ---
APPROVED REPORT EKG Measurement Heart [id number] <Conclusion> Normal sinus rhythm Prolonged QT Abnormal ECG
== END 2018-03-12 17:53 | disposition home or self-care (01) ==
LOC: ED 13:09
DX: Z00.00 Encounter for general adult medical examination without abnormal findings (principal); F32.9 Major depressive disorder, single episode, unspecified; R03.0 Elevated blood-pressure reading, without diagnosis of hypertension

== ENCOUNTER 2018-06-12 14:06 | Emergency (ER) | payer MEDICAID ==
[2018-06-12 14:15] VITALS: BMI 51.2
[2018-06-12 14:23] VITALS: RESP 18; TEMP 98.3
[2018-06-12] MEDS ORDERED: Sodium Chloride 0.9% 1,000 ML IV STA (14:46)
[2018-06-12 15:31] LABS: BASO # 0.01 K/mm3 (0.0-2.0); BASO % 0.2 % (0.0-3.0); EOS # 0.1 (0.0-0.7); EOS % 1.7 % (1.5-5.0); GRAN # 3.47 (1.4-6.5); GRAN % 59.1 % (50.0-68.0); HEMOGLOBIN 9.2 g/dL (12.0-16.0); LYMPH % 34.4 % (22.0-35.0); MEAN CELL VOLUME 72.4 fl (80.0-105.0); MEAN CORPUSCULAR HEMOGLOBIN 23.1 pg (25.0-35.0); MEAN CORPUSCULAR HGB CONC 31.9 g/dl (31.0-37.0); MEAN PLATELET VOLUME 10.2 fl (7.0-11.0); MONO # 0.3 (0.1-0.6); MONO % 4.6 % (1.0-6.0); RBC 3.98 10^6/uL (3.5-6.1); RED CELL DISTRIBUTION WIDTH 15.3 % (11.5-14.5); WHITE BLOOD COUNT 5.9 10^3/ul (4.5-11.0)
[2018-06-12 15:46] LABS: INR 1.04 (0.93-1.08); PARTIAL THROMBOPLASTIN TIME 25.6 Seconds (25.1-36.5); PROTHROMBIN TIME 11.9 SECONDS (9.4-12.5)
[2018-06-12 15:49] LABS: ALB/GLOB RATIO 1.1 (1.1-1.8); ALBUMIN 3.9 g/dL (3.0-4.8); ALT/SGPT 28 U/L (7-56); AST/SGOT 20 U/L (14-36); BLOOD UREA NITROGEN 7 mg/dL (7-21); CALCIUM 8.9 mg/dL (8.4-10.5); GFR AFRICAN-AMERICAN > 60; GFR NON-AFRICAN AMERICAN > 60
--- NOTE | 2018-06-12 16:02 | ED PDOC ---
Arrival/HPI - General Chief Complaint: Female Genitourinary Time Seen by Provider: 06/12/18 14:23 Historian: Patient - History of Present Illness Narrative History of Present Illness (Text): 06/12/18 15:56 28-year-old female presents today with a 2 month history of vaginal bleeding and generalized weakness and fatigue. pt states she has been having periods where she will get her menstruation every 2 months. Patient states he will then stopped for a few days and then start again for another 2 months. Patient denies chest pain or shortness of breath. She denies fevers or chills. Patient states she is being followed by her ore puncher. Patient states she has not had an ultrasound. Patient denies urinary symptoms. Denies back pain. Denies nausea vomiting diarrhea or constipation. No other complaints Past Medical History - Provider Review Nursing Documentation Reviewed: Yes - Travel History Have you recently traveled outside [place] w/in the past 3 mons?: No - Past History Past History: Non-Contributing - Infectious Disease Hx of Infectious Diseases: None - Tetanus Immunization Tetanus Immunization: Unknown - Past Medical History Past Medical History: No Previous - Cardiac Hx Cardiac Disorders: No - Pulmonary Hx Respiratory Disorders: No - Neurological Hx Neurological Disorder: No - HEENT Hx HEENT Disorder: No - Renal Hx Renal Disorder: No - Endocrine/Metabolic Hx Endocrine Disorders: No - Hematological/Oncological Hx Blood Disorders: No - Integumentary Hx Dermatological Disorder: No - Musculoskeletal/Rheumatological Hx Musculoskeletal Disorders: No Hx Back Pain: No - Gastrointestinal Hx Gastrointestinal Ulcer: Yes - Genitourinary/Gynecological Hx Genitourinary Disorders: No - Psychiatric Hx Anxiety: Yes Hx Depression: Yes Hx Substance Use: No - Past Surgical History Past Surgical History: No Previous - Surgical History Hx Appendectomy: No Hx Cholecystectomy: No Hx Coronary Stent: No - Anesthesia Hx Anesthesia Reactions: No - Suicidal Assessment Feels Threatened In Home Enviroment: No Family/Social History - Physician Review Nursing Documentation Reviewed: Yes Family/Social History: Unknown Family HX Smoking Status: Never Smoked Hx Alcohol Use: Yes Hx Substance Use: No Hx Substance Use Treatment: No Allergies/Home Meds Allergies/Adverse Reactions: Allergies UNKNOWN ANTIDEPRESSANT Allergy (Uncoded 10/22/17 15:49) RASH Home Medications: Home Meds Medication Instructions Recorded Confirmed Alprazolam [Xanax] 0.25 mg PO BID 10/11/15 10/22/17 Ziprasidone [Geodon Cap] 40 mg PO Q12H 10/11/15 10/22/17 traZODone [Desyrel] 50 mg PO HS 10/11/15 10/22/17 Review of Systems - Review of Systems Constitutional: Fatigue. absent: Fevers ENT: absent: Sore Throat Respiratory: absent: SOB, Cough Cardiovascular: absent: Chest Pain, Palpitations Gastrointestinal: absent: Abdominal Pain, Nausea, Vomiting Genitourinary Female: Vaginal Bleeding. absent: Dysuria, Frequency, Hematuria Musculoskeletal: absent: Arthralgias, Back Pain, Neck Pain Skin: absent: Rash, Pruritis Neurological: absent: Headache, Dizziness Psychiatric: absent: Anxiety, Depression, Suicidal Ideation Physical Exam Vital Signs Reviewed: Yes Vital Signs Temp Pulse Resp BP Pulse Ox 06/12/18 16:40 74 18 128/74 97 06/12/18 14:22 98.3 F 78 18 131/77 97 Temperature: Afebrile Blood Pressure: Normal Pulse: Regular Respiratory Rate: Normal Appearance: Positive for: Well-Appearing, Non-Toxic, Comfortable Pain Distress: None Mental Status: Positive for: Alert and Oriented X 3 - Systems Exam Head: Present: Atraumatic Mouth: Present: Moist Mucous Membranes Neck: Present: Normal Range of Motion Respiratory/Chest: Present: Clear to Auscultation, Good Air Exchange. No: Respiratory Distress, Accessory Muscle Use Cardiovascular: Present: Regular Rate and Rhythm, Normal S1, S2. No: Murmurs Abdomen: No: Tenderness, Distention, Peritoneal Signs, Rebound, Guarding Genitourinary/Pelvic Exam: Present: Normal External Genitalia, Vaginal Bleeding (small amount of blood noted. ), Other (chaparoned by carmenza landin EMT). No: Vaginal Discharge, Vaginal Lesions Neurological: Present: GCS=15 Skin: Present: Warm, Dry, Normal Color. No: Rashes Psychiatric: Present: Alert, Oriented x 3 Medical Decision Making ED Course and Treatment: 06/12/18 16:04 Patient is nontoxic well appearing in no distress. vital signs are stable. CBC: hgb; 9.2 hgb was 9.3 02/2018 CMP: wnl EKG: Normal sinus rhythm at 78 bpm and complete right bundle branch block normal axis no ST elevations Urinalysis: + blood Ultrasound: FINDINGS: UTERUS: Measures 5.3 x 6.5 x 10.4 cm. Normal in size and appearance. No fibroid or other mass lesion seen. ENDOMETRIUM: Measures 22.4 mm in diameter. Endometrial hypertrophy without focal abnormality. This represents a new finding compared to the prior study. CERVIX: No cervical abnormality identified. RIGHT OVARY: Measures 2 x 4.6 x 3.5 cm. No solid mass. Normal flow. LEFT OVARY: Measures 2.4 x 2.4 x 2.9 cm. No solid mass. Normal flow. FREE FLUID: No significant free fluid noted. OTHER FINDINGS: None. IMPRESSION: Markedly thickened endometrial echo complex without focal abnormality. Otherwise unremarkable study. On pelvic exam patient was found to have minimal vaginal bleeding noted. pt reassessment; pt is non toxic well appearing; no distress. stable vitals. ambulating with steady gait. no distress. Discussed all the results the patient. advised f/u with the clerical adjudicator within the next 2 days. advised immediate return if symptoms worsen,persist or if new symptoms develop. Patient verbalizes understanding of discharge instructions and need for immediate followup. all aspects of this case were discussed the attending of record. Impression: Vaginal bleeding Tylenol every 4 hours as needed for pain Increase fluids Followup with the [facility] within the next 2 days Return immediately if symptoms worsen persist or if new symptoms develop: High fevers, heavy bleeding, severe abdominal pain, vomiting, diarrhea, dizziness or weakness or any other concerning symptoms develop. - Lab Interpretations Lab Results: 06/12/18 15:20 06/12/18 15:20 Lab Results 06/12/18 17:09: Urine Color Yellow, Urine Appearance Sl cloudy, Urine pH 6.0, Ur Specific [place] >= 1.030, Urine Protein 30 H, Urine Glucose (UA) Negative, Urine Ketones Negative, Urine Blood Large H, Urine Nitrate Negative, Urine Bilirubin Negative, Urine Urobilinogen 0.2, Ur Leukocyte Esterase Trace H, Urine RBC Tntc, Urine WBC 5 - 10, Ur Epithelial Cells 6 - 8, Urine Bacteria Mod 06/12/18 15:20: WBC 5.9, RBC 3.98, Hgb 9.2 L, Hct 28.8 L, MCV 72.4 L, MCH 23.1 L , MCHC 31.9, RDW 15.3 H, Plt Count 179, MPV 10.2, Gran % 59.1, Lymph % (Auto) 34.4, [place] % (Auto) 4.6, Eos % (Auto) 1.7, Baso % (Auto) 0.2, Gran # 3.47, Lymph # (Auto) 2.0, [place] # (Auto) 0.3, Eos # (Auto) 0.1, Baso # (Auto) 0.01 06/12/18 15:20: Sodium 140, Potassium 4.0, Chloride 102, Carbon Dioxide 25, Anion Gap 17, BUN 7, Creatinine 0.5 L, Est GFR ( Amer) > 60, Est GFR (Non -Af Amer) > 60, Random Glucose 138 H, Calcium 8.9, Total Bilirubin 0.3, AST 20, ALT 28, Alkaline Phosphatase 76, Total Protein 7.3, Albumin 3.9, Globulin 3.4, Albumin/Globulin Ratio 1.1 06/12/18 15:20: PT 11.9, INR 1.04, APTT 25.6 - RAD Interpretation Radiology Orders: 06/12/18 15:40 TRANSVAGINAL [US] Stat - Medication Orders Current Medication Orders: Discontinued Medications Sodium Chloride (Sodium Chloride 0.9%) 1,000 mls @ 999 mls/hr IV .Q1H1M STA Stop: 06/12/18 15:46 Last Admin: 06/12/18 15:15 Dose: 999 mls/hr eMAR Start Stop Document 06/12/18 15:15 SUZIE (Rec: 06/12/18 16:03 SUZIE [id number]) Intravenous Solution Start Date 06/12/18 Start Time 15:15 End Date 06/12/18 End time 16:16 Total Infusion Time 61 Disposition/Present on Arrival - Present on Arrival Any Indicators Present on Arrival: No History of DVT/PE: No History of Uncontrolled Diabetes: No Urinary Catheter: No History of Decub. Ulcer: No History Surgical Site Infection Following: None - Disposition Have Diagnosis and Disposition been Completed?: Yes Diagnosis: Vaginal bleeding Disposition: HOME/ ROUTINE Disposition Time: 18:26 Patient Plan: Discharge Condition: GOOD Additional Instructions: Tylenol every 4 hours as needed for pain Increase fluids Followup with the [facility] within the next 2 days Return immediately if symptoms worsen persist or if new symptoms develop: High fevers, heavy bleeding, severe abdominal pain, vomiting, diarrhea, dizziness or weakness or any other concerning symptoms develop. Referrals: Janessa Stewart MD [Medical Doctor] - Follow up with primary [facility] [Outside] - Follow up with primary Adia De La Cruz MD [Staff Provider] - Follow up with primary Forms: [employer] ([place]), WORK NOTE
[2018-06-12 17:25] LABS: URINE BILIRUBIN NEGATIVE (NEGATIVE); URINE BLOOD LARGE (NEGATIVE); URINE GLUCOSE (UA) NEGATIVE (NEGATIVE); URINE LEUKOCYTE ESTERASE TRACE Leu/uL (NEGATIVE); URINE PROTEIN 30 mg/dL (<30 mg/dL); URINE UROBILINOGEN 0.2 E.U./dL (<1 E.U./dL)
[2018-06-12 17:27] LABS: URINE APPEARANCE SL CLOUDY (CLEAR); URINE COLOR YELLOW (YELLOW)
[2018-06-12 17:34] LABS: URINE BACTERIA MOD (NEG); URINE RBC TNTC /hpf (0-2)
--- NOTE | 2018-06-12 17:47 | US ---
Date of service: 06/12/2018 HISTORY: Vaginal bleeding 2 months duration. LMP 06/12/2018. Irregular cycles. COMPARISON: 10/27/2014. TECHNIQUE: Transvaginal only. Real -time technique with 2D, duplex and color Doppler FINDINGS: UTERUS: Measures 5.3 x 6.5 x 10.4 cm. Normal in size and appearance. No fibroid or other mass lesion seen. ENDOMETRIUM: Measures 22.4 mm in diameter. Endometrial hypertrophy without focal abnormality. This represents a new finding compared to the prior study. CERVIX: No cervical abnormality identified. RIGHT OVARY: Measures 2 x 4.6 x 3.5 cm. No solid mass. Normal flow. LEFT OVARY: Measures 2.4 x 2.4 x 2.9 cm. No solid mass. Normal flow. FREE FLUID: No significant free fluid noted. OTHER FINDINGS: None. IMPRESSION: Markedly thickened endometrial echo complex without focal abnormality. Otherwise unremarkable study.
[2018-06-12 18:46] VITALS: O2SAT 99
[2018-06-12 18:47] VITALS: BP 120/72; PULSE 68
--- NOTE | 2018-06-12 19:32 | CARD ---
APPROVED REPORT Date of service: 06/12/2018 EKG Measurement Heart [id number] <Conclusion> Normal sinus rhythm Incomplete right bundle branch block Minimal voltage criteria for LVH, may be normal variant Prolonged QT Abnormal ECG
== END 2018-06-12 18:46 | disposition home or self-care (01) ==
LOC: ED 14:06
DX: N93.9 Abnormal uterine and vaginal bleeding, unspecified (principal)
CPT/HCPCS: 76830; 80053; 81001; 85025; 85610; 85730; 87086; 93005; 96360; 99284; J7030